=== PATIENT | male | born 1955 | race Caucasian/White ===

== ENCOUNTER 2017-01-07 10:58 | Day surgery (SDC) | payer OTHER ==
[2017-01-07] MEDS ORDERED: LIDOCAINE HCL/PF 2% SDV 5ML VIAL ONE (11:10)
[2017-01-07 11:41] VITALS: BMI 23.9
[2017-01-07 12:15] VITALS: TEMP 97.8
[2017-01-07 15:02] VITALS: BP 136/76; PULSE 67
--- NOTE | 2017-01-08 16:20 | PATH ---
Surgical Pathology Report Patient Name: BERTRAND ANDERSON [facility]. Rec. #: [id number] /Age/Gender: 1955 (Age: 61) / M Account: [id number] Location: [facility]-ENDOSCOPY Taken: 01/07/2017 Received: 01/07/2017 Reported: 01/08/2017 Physicians: Elvis Pompa M.D. Specimen(s) Received A: BX BODY OF STOMACH B: BX IRREGULAR Z-LINE Clinical History GERD, weight loss Irregular Z line, gastritis, erythema Final Diagnosis A. STOMACH, BODY, BIOPSY: FOCAL MILD CHRONIC GASTRITIS. IMMUNOSTAIN FOR H. PYLORI IS NEGATIVE. B. ESOPHAGUS, Z LINE, BIOPSY: SQUAMOUS AND GASTRIC MUCOSA WITH CHRONIC INFLAMMATION. NO INTESTINAL METAPLASIA IDENTIFIED (NO OCAMPO'S IDENTIFIED). Electronically Signed Macario Montana M.D. Gross Description A. Received in formalin, labeled "biopsy body of stomach" are 2 calles, irregular portions of soft tissue measuring 0.2 and 0.5 cm. in greatest dimension. The specimens are submitted in toto in one cassette. B. Received in formalin, labeled "biopsy irregular Z line" are 3 calles, irregular portions of soft tissue averaging 0.3 cm. in greatest dimension. The specimens are submitted in toto in one cassette. 01/07/2017 [facility]01/07/2017
== END 2017-01-07 13:15 | disposition home or self-care (01) ==
LOC: JASU-ENDO 10:58
PROVIDERS: ATTEND Internal Medicine Gastroenterology
PROC: 0DB68ZX Excision of Stomach, Via Natural or Artificial Opening Endoscopic, Diagnostic (ICD-10-PCS; 2017-01-07)
PROC: 0DB58ZX Excision of Esophagus, Via Natural or Artificial Opening Endoscopic, Diagnostic (ICD-10-PCS; principal; 2017-01-07 11:00)
DX: K21.9 Gastro-esophageal reflux disease without esophagitis (principal); R63.4 Abnormal weight loss
CPT/HCPCS: 88305-TC; 88342-TC